=== PATIENT | female | born 1985 | race Hispanic/Latino ===

== ENCOUNTER → 2021-02-06 | Outpatient (CLI) | payer OTHER ==
[2021-02-06 10:35] LABS: BASOPHILS % (AUTO) 0.4 % (0.0-5.0); EOSINOPHILS % (AUTO) 2.6 % (0.0-8.0); HEMATOCRIT 46.2 % (36-48); LYMPHOCYTES % (AUTO) 26.5 % (21.0-51.0); MEAN CORPUSCULAR HEMOGLOBIN 28.7 pg (27.0-33.0); MEAN CORPUSCULAR HGB CONC 30.7 g/dL (32.0-36.0); MEAN CORPUSCULAR VOLUME 93.5 fL (79-99); MONOCYTES % (AUTO) 7.9 % (3.0-13.0); NEUTROPHILS % (AUTO) 61.9 % (40.0-77.0); PLATELET COUNT (AUTO) 401 K/uL (130-400); RED BLOOD CELL COUNT(AUTO) 4.94 MIL/uL (4.00-5.50); RED CELL DISTRIBUTION WIDTH 14.1 % (11.0-15.5); WHITE BLOOD COUNT (AUTO) 9.7 K/uL (4.8-10.8)
[2021-02-06 10:55] LABS: HEMOGLOBIN A1C 5.9 % (4.0-6.0)
[2021-02-06 11:15] LABS: CREATININE 0.8 mg/dL (0.5-1.5); POTASSIUM 4.8 mmol/L (3.5-5.1)
== END | disposition home or self-care (01) ==
LOC: LAB 08:03
PROVIDERS: ATTEND Nurse Practitioner Adult Health
DX: Z00.00 Encounter for general adult medical examination without abnormal findings (principal)
CPT/HCPCS: 36415; 80048; 83036; 85025

== ENCOUNTER → 2021-10-08 | Outpatient (CLI) | payer OTHER ==
[2021-10-08 09:25] LABS: BASOPHILS % (AUTO) 0.4 % (0.0-5.0); EOSINOPHILS % (AUTO) 1.7 % (0.0-8.0); HEMATOCRIT 45.9 % (36-48); LYMPHOCYTES % (AUTO) 27.8 % (21.0-51.0); MEAN CORPUSCULAR HEMOGLOBIN 29.3 pg (27.0-33.0); MEAN CORPUSCULAR HGB CONC 31.4 g/dL (32.0-36.0); MEAN CORPUSCULAR VOLUME 93.5 fL (79-99); MONOCYTES % (AUTO) 6.6 % (3.0-13.0); NEUTROPHILS % (AUTO) 63.1 % (40.0-77.0); PLATELET COUNT (AUTO) 181 K/uL (130-400); RED BLOOD CELL COUNT(AUTO) 4.91 MIL/uL (4.00-5.50); RED CELL DISTRIBUTION WIDTH 13.5 % (11.0-15.5); WHITE BLOOD COUNT (AUTO) 11.1 K/uL (4.8-10.8)
[2021-10-08 09:56] LABS: ALBUMIN 4.1 g/dL (3.5-5.0); BILIRUBIN,TOTAL 0.3 mg/dL (0.2-1.0); CREATININE 0.7 mg/dL (0.5-1.5); POTASSIUM 4.2 mmol/L (3.5-5.1); THYROID STIMULATING HORMONE 1.37 uIU/mL (0.36-3.74); TOTAL PROTEIN, SERUM 7.8 g/dL (6.0-8.3)
[2021-10-08 10:20] LABS: HEMOGLOBIN A1C 5.9 % (4.0-6.0)
== END | disposition home or self-care (01) ==
LOC: RAH 08:44
PROVIDERS: ATTEND Nurse Practitioner Adult Health
DX: Z00.00 Encounter for general adult medical examination without abnormal findings (principal); R06.02 Shortness of breath
CPT/HCPCS: 36415; 71046; 80053; 80061; 82306; 83036; 84443; 85025

== ENCOUNTER 2024-06-23 21:55 | Emergency (ER) | payer OTHER ==
[~2024-06-23] VITALS: Ht 154.9 cm; Wt 68.9 kg
[2024-06-24 01:54] LABS: ADD UA MICROSCOPIC YES; APPEARANCE,URINE CLEAR (CLEAR); BILIRUBIN,URINE NEGATIVE (NEGATIVE); COLOR,URINE YELLOW (YELLOW); GLUCOSE, URINE (UA) NEGATIVE (NEGATIVE); KETONES,URINE NEGATIVE (NEGATIVE); LEUKOCYTE ESTERASE ,URINE NEGATIVE Leu/uL (NEGATIVE); NITRATE,URINE NEGATIVE (NEGATIVE); OCCULT BLOOD,URINE NEGATIVE (NEGATIVE); PH,URINE 5.5 (5.0-8.0); PROTEIN,URINE 10 mg/dL (NEGATIVE); UROBILINOGEN,URINE 0.2 mg/dL (0.2-1.0)
[2024-06-24 01:56] LABS: HCG,QUALITATIVE URINE NEGATIVE (NEGATIVE)
[2024-06-24 01:58] LABS: BACTERIA,URINE FEW /HPF (None Seen); CALCIUM OXALATE CRYSTALS,UR MANY /LPF (None Seen); SQUAMOUS EPITHELIAL CELL,UR RARE /HPF (0-2)
[2024-06-24] MEDS ORDERED: KETO10TA2 PO (02:24)
[2024-06-24] MEDS: KETOROLAC 30MG VIAL (30MG/ML) IVP ONE (02:31)
[2024-06-24] MEDS: ORPHENADRINE 60MG/2ML IVP ONE (02:31)
[2024-06-24] MEDS: TRIAMCINOLONE ACETONIDE 40 MG/ML 1ML VIAL IM ONE (02:32)
[2024-06-24 02:34] VITALS: BP 130/86; PULSE 77; RESP 20; O2SAT 100
== END 2024-06-24 02:40 | disposition home or self-care (01) ==
LOC: EDH 21:55
DX: G89.29 Other chronic pain (principal); M54.89 Other dorsalgia; Z88.2 Allergy status to sulfonamides; Z88.5 Allergy status to narcotic agent; Z88.8 Allergy status to other drugs, medicaments and biological substances; Z98.890 Other specified postprocedural states
CPT/HCPCS: 99284; 81001; 81025; 96374; 96375; 96372; J3301; J1885; J2360

== ENCOUNTER → 2024-06-28 | Outpatient (CLI) | payer OTHER ==
[~2024-06-28] MED LIST: KETO10TA2 PO
[2024-06-28 14:31] LABS: CREATININE 0.5 mg/dL (0.5-1.0); MAGNESIUM 2.3 mg/dL (1.80-2.40); POTASSIUM 4.1 mmol/L (3.5-5.1)
== END | disposition home or self-care (01) ==
LOC: LAB 13:33
PROVIDERS: ATTEND Internal Medicine
DX: R55 Syncope and collapse (principal)
CPT/HCPCS: 36415; 80048; 83735

== ENCOUNTER 2024-09-30 16:29 | Emergency (ER) | payer OTHER ==
[~2024-09-30] VITALS: Ht 154.9 cm; Wt 71.2 kg
[2024-09-30 16:49] VITALS: TEMP 98.6
--- NOTE | 2024-09-30 17:51 | ERN ---
ED Note History of Present Illness Stated Complaint: BACK PAIN Chief Complaint: Back Pain or Injury Time Seen by MD: 17:08 Time Seen by Midlevel: 17:08 Dictation: The patient is a 39-year-old female with a history of , cholecystectomy, gastric sleeve, L5 spondylosis who presents to the emergency department with complaints of low back pain radiating down her right lower leg. 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 Patient reports that she has gotten multiple x-rays and MRI and they still do she had a grade 3 spondylosis of L 5 and S1 but has not been able to follow up with a specialist due to insurance issues. Patient denies any fecal or urinary incontinence, denies any lower extremity tingling or numbness. Allergies: Coded Allergies: Codeine (Unverified Allergy, HIVES, 03/04/13) Meperidine HCl (Unverified Allergy, CONFUSION, 03/04/13) Sulfa(Sulfonamide Antibiotics) (Unverified Allergy, HIVES, 03/04/13) ondansetron HCl (Unverified Allergy, CONFUSION, 03/04/13) Home Meds Active Scripts Ketorolac Tromethamine (Ketorolac Tromethamine) 10 Mg Tablet, 10 MG PO BID for 5 Days, #10 TAB Prov:GEOVANNY KEYS 06/24/24 Past Medical History Past Medical History: No Pertinent History Surgical History: History: Not Applicable (reports control implant, denies ) RN Note Reviewed/Agreed w/PFSH: Yes Review of System Dictation Constitutional: Negative for fever,chills, and weight loss Eyes: Negative for injury, pain,redness, and discharge ENT: Negative for injury,pain or swelling Cardiovascular: Negative for chest pain, palpitations, and edema Respiratory: Negative for shortness of breath, cough, and wheezing, Abdomen/GI: Negative for abdominal pain, nausea, vomiting, diarrhea, and constipation Back: Negative for injury and pain : Negative for injury, bleeding and discharge MS/Extremity: Negative for injury and deformity positive for low back pain Skin: Negative for rash, and discoloration Neuro: Negative for headache, weakness, numbness, tingling, and seizure Psych: Negative for suicide ideation, homicidal ideation, and hallucinations Initial Vital Sign VS Vital Signs Date Time Temp Pulse Resp B/P (MAP) Pulse Ox O2 Delivery O2 Flow Rate FiO2 09/30/24 16:49 98.6 78 18 159/99 98 09/30/24 17:33 Room Air* 0 21 Physical Exam Dictation Vital Signs reviewed General Appearance: Alert, oriented x 3, no acute distress, well developed, nourished. Head and Face: non-traumatic. Eyes: PERRL, pink conjunctivas, eyelid no trauma, anterior chamber with arcus senilis. Ears: Pinnas intact and no signs of trauma or erythema ear canals clear and no discharge TM no erythema Nose: No discharge, no bleeding. Oropharynx: Mouth normal, tongue pink. pharynx clear,no erythema, tonsils no exudates, no abscesses noted, mucous membrane moist Neck: Supple, non-tender, no thyromegaly, no masses, no JVD, no bruits Breast:Deferred Chest:No tenderness, no crepitus, no paradoxical movement, no retractions Lungs:Clear, well-ventilated, symmetric, no rales, no wheezing, no rhonchi, no stridor, good breath sounds bilaterally Heart: Regular rate, regular rhythm, no murmur, no gallops Vascular: no peripheral edema, cap refill less than 2 seconds, dorsalis pedis 3+ Abdomen: Soft, positive bowel sounds, nondistended, no guarding, nontender, no rebound, no masses no hepatomegaly, no splenomegaly, no Liu's sign, no hernias. Rectal: Deferred Genital: Deferred Neurological: Normal speech, motor function intact, sensory function intact Musculoskeletal: Neck nontender, full range of motion, back nontender, tenderness to right buttocks full range of motion, Extremities: nontender, full range of motion Skin: Color pink, dry, no turgor, no rash, no lacerations, no abrasions, no contusions. Lymphatic: Deferred Results (Laboratory/Radiology) Labs Reviewed?: Yes ED Course ED Course Orders Procedure Category Date Status Time Orphenadrine Citrate PHA 09/30/24 Complete (Norflex) 17:30 Triamcinolone Acet PHA 09/30/24 Complete 40mg/Ml 1ml (Kenalog 17:30 Current Medications Medications (Trade) Dose Ordered Sig/Mariaa Route PRN Reason Start Time Stop Time Status Last Admin Dose Admin Orphenadrine Citrate (Norflex) 60 mg ONCE ONCE IM 09/30/24 17:30 09/30/24 17:31 DC 09/30/24 19:17 Triamcinolone Acetonide (Kenalog 40) 40 mg ONCE ONCE IM 09/30/24 17:30 09/30/24 17:31 DC 09/30/24 19:17 Vital Signs Date Time Temp Pulse Resp B/P (MAP) Pulse Ox O2 Delivery O2 Flow Rate FiO2 09/30/24 17:33 75 18 146/79 99 Room Air* 0 09/30/24 16:49 98.6 78 18 159/99 98 Medical Decision Making MDM The patient is a 39-year-old female with a history of , cholecystectomy, gastric sleeve, L5 spondylosis who presents to the emergency department with complaints of low back pain radiating down her right lower leg. 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 Patient reports that she has gotten multiple x-rays and MRI and they still do she had a grade 3 spondylosis of L 5 and S1 but has not been able to follow up with a specialist due to insurance issues. Patient denies any fecal or urinary incontinence, denies any lower extremity tingling or numbness. Patient treated for pain in ED. Continues in no distress. Will be discharged to follow up with PCP. Patient agrees with discharge planning. Differential diagnosis: Chronic low back pain, sciatic nerve pain, piriformis syndrome Need for hospitalization: Patient does not meet criteria for hospitalization. There are no social concerns with this patient. DX & DISP Disposition: Discharge Departure Impression: Primary Impression: Chronic back pain Condition: Stable Scripts Lidocaine (Lidocaine Pain Relief) 4 % Adh..patch 1 PATCH TP DAILY for 10 Days, #10 PATCH 0 Refills Prov: NAY CAMPOS [employer] 09/30/24 Cyclobenzaprine HCl (Flexeril) 10 Mg Tab 10 MG PO TID for muscle sstiffness, #14 TAB 0 Refills Prov: NAY CAMPOS [employer] 09/30/24 Additional Instructions: FOLLOW-UP WITH PRIMARY CARE PROVIDER IN 1 TO 2 DAYS. TAKE MEDICATIONS DIRECTED HERE IN THE EMERGENCY ROOM. OKAY TO CONTINUE HOME MEDICATIONS UNLESS OTHERWISE DISCUSSED DURING YOUR VISIT IN THE EMERGENCY ROOM TODAY. RETURN TO YOUR NEAREST EMERGENCY ROOM IF SYMPTOMS WORSEN OR IF THERE IS NO IMPROVEMENT. CALL 911 IF YOU NEED IMMEDIATE ASSISTANCE. TAKE TYLENOL OR MOTRIN [id number] NEEDED AND IF NO CONTRAINDICATIONS ARE PRESENT. INCREASE ORAL HYDRATION. A WOUND CULTURE OR URINE CULTURE WAS ORDERED HERE IN THE EMERGENCY ROOM DEPARTMENT PLEASE FOLLOW-UP WITH PRIMARY CARE PROVIDER AND ADVISE THEM TO GET REPEAT PORTS FROM OUR FACILITY. IF YOU HAD ANY MERCEDEZ WRAP/SPLINTS THAT WERE APPLIED HERE, PLEASE DO NOT REMOVE THEM UNTIL YOU SEE YOUR PRIMARY CARE OR SPECIALTY. Referrals: AGAPITO BRUCE [employer] (PCP) Time of Disposition: 19:53 I have reviewed the case, and I agree with, Diagnosis and Plan NAY CAMPOS [facility] Sep 30, 2024 17:51
[2024-09-30] MEDS: ORPHENADRINE 60MG/2ML IM ONE (19:17)
[2024-09-30] MEDS: TRIAMCINOLONE ACETONIDE 40 MG/ML 1ML VIAL IM ONE (19:17)
[2024-09-30] MEDS ORDERED: LIDO1ADH71 TP (19:54)
[2024-09-30] MEDS ORDERED: CYCL10TA16 PO (19:54)
[2024-09-30 20:16] VITALS: BP 134/75; PULSE 76; RESP 18; O2SAT 99
[2024-09-30] MEDS: ibuPROFEN 600 MG TABLET PO ONE (20:16)
== END 2024-09-30 20:17 | disposition home or self-care (01) ==
LOC: EDH 16:29
DX: G89.29 Other chronic pain (principal); M54.50 Low back pain, unspecified; Z88.2 Allergy status to sulfonamides; Z88.5 Allergy status to narcotic agent; Z79.899 Other long term (current) drug therapy; Z98.890 Other specified postprocedural states
CPT/HCPCS: 99284; 96372 ×2; J3301; J2360

== ENCOUNTER → 2024-10-06 | Outpatient (CLI) | payer OTHER ==
[~2024-10-06] MED LIST changes: +CYCL10TA16 PO; +LIDO1ADH71 TP
[2024-10-06 08:35] LABS: BASOPHILS # (AUTO) 0.04 K/uL (0.00-0.20); BASOPHILS % (AUTO) 0.6 % (0.0-5.0); EOSINOPHILS # (AUTO) 0.15 K/uL (0.00-0.70); EOSINOPHILS % (AUTO) 2.2 % (0.0-8.0); HEMATOCRIT 36.5 % (36-48); IMMATURE GRANULOCYTE ABSOLUTE 0.01 K/uL (0-1); LYMPHOCYTES # (AUTO) 2.2 K/uL (1.0-4.8); LYMPHOCYTES % (AUTO) 32.7 % (21.0-51.0); MEAN CORPUSCULAR HEMOGLOBIN 28.8 pg (27.0-33.0); MEAN CORPUSCULAR HGB CONC 31.5 g/dL (32.0-36.0); MEAN CORPUSCULAR VOLUME 91.5 fL (79-99); MONOCYTES # (AUTO) 0.5 K/uL (0.1-1.0); MONOCYTES % (AUTO) 7.7 % (3.0-13.0); NEUTROPHILS # (AUTO) 3.8 K/uL (1.8-7.7); NEUTROPHILS % (AUTO) 56.7 % (40.0-77.0); PLATELET COUNT (AUTO) 324 K/uL (130-400); RED BLOOD CELL COUNT(AUTO) 3.99 MIL/uL (4.00-5.50); RED CELL DISTRIBUTION WIDTH 13.8 % (11.0-15.5); WHITE BLOOD COUNT (AUTO) 6.8 K/uL (4.8-10.8)
[2024-10-06 09:00] LABS: BILIRUBIN,TOTAL 0.4 mg/dL (0.2-1.0); CREATININE 0.7 mg/dL (0.5-1.0); POTASSIUM 4.5 mmol/L (3.5-5.1); TOTAL PROTEIN, SERUM 6.8 g/dL (6.0-8.3)
== END | disposition home or self-care (01) ==
LOC: LAB 07:09
PROVIDERS: ATTEND Internal Medicine
DX: K76.0 Fatty (change of) liver, not elsewhere classified (principal); E78.6 Lipoprotein deficiency
CPT/HCPCS: 36415; 80053; 82728; 85025

== ENCOUNTER 2024-12-09 18:03 | Emergency (ER) | payer OTHER ==
[~2024-12-09] VITALS: Ht 154.9 cm; Wt 73.5 kg
[2024-12-09 19:11] LABS: HEMATOCRIT 37.7 % (36-48); MEAN CORPUSCULAR HEMOGLOBIN 29.1 pg (27.0-33.0); MEAN CORPUSCULAR HGB CONC 31.8 g/dL (32.0-36.0); MEAN CORPUSCULAR VOLUME 91.5 fL (79-99); RED BLOOD CELL COUNT(AUTO) 4.12 MIL/uL (4.00-5.50); RED CELL DISTRIBUTION WIDTH 13.7 % (11.0-15.5); WHITE BLOOD COUNT (AUTO) 10.2 K/uL (4.8-10.8)
[2024-12-09 19:13] LABS: APPEARANCE,URINE CLOUDY (CLEAR); BILIRUBIN,URINE NEGATIVE (NEGATIVE); COLOR,URINE LIGHT-YELLOW (YELLOW); GLUCOSE, URINE (UA) NEGATIVE (NEGATIVE); KETONES,URINE NEGATIVE (NEGATIVE); LEUKOCYTE ESTERASE ,URINE 500 Leu/uL (NEGATIVE); NITRATE,URINE NEGATIVE (NEGATIVE); OCCULT BLOOD,URINE LARGE (NEGATIVE); PROTEIN,URINE 70 mg/dL (NEGATIVE); UROBILINOGEN,URINE 0.2 mg/dL (0.2-1.0)
[2024-12-09 19:14] LABS: ADD UA MICROSCOPIC YES
[2024-12-09 19:17] LABS: BACTERIA,URINE FEW /HPF (None Seen); RBC,URINE 51-100 /HPF (0-1); UNCLASSIFIED CRYSTAL 1 /HPF (None Seen); WBC CLUMP FEW /HPF (0-1); WBC,URINE 26-50 /HPF (0-1); YEAST,URINE BUDDING RARE /HPF (None Seen)
[2024-12-09 19:23] LABS: CREATININE 0.6 mg/dL (0.5-1.0); POTASSIUM 4.1 mmol/L (3.5-5.1)
[2024-12-09 19:29] LABS: ALBUMIN 3.8 g/dL (3.5-5.0); BILIRUBIN,DIRECT 0.1 mg/dL (0.0-0.3); BILIRUBIN,TOTAL 0.3 mg/dL (0.2-1.0); TOTAL PROTEIN, SERUM 7.2 g/dL (6.0-8.3)
--- NOTE | 2024-12-09 21:09 | HMCIMG ---
Exam Type: CT ABDOMEN/PELVIS W/O CONTRAST Clinical Information: r/o kidney stones vs pyelonephritis Comparison: None CT Dose Index (CTDI): 10.20 mGy Dose Length Product (DLP): 530.00 total mGy-cm PROTOCOL: Routine noncontrast helical scanning of the abdomen and pelvis was performed at 5mm collimation. Findings: No evidence of nephro or ureterolithiasis is found. No hydronephrosis or ureteral dilatation is seen. The lung bases are clear. The stomach is unremarkable. It shows no wall thickening. No gross ulceration is seen. It is not overly distended. There are no surrounding inflammatory changes. No wall lesions are identified to suggest cancer. The spleen is unremarkable. It is not enlarged. The pancreas shows normal anatomy. It is not fatty replaced. It shows no lesions. The pancreatic duct is not dilated. The gallbladder is unremarkable. It shows no cholelithiasis. The gallbladder wall is normal in thickness. There is no pericholecystic fluid. The is no acute or chronic inflammation noted. The adrenal glands are unremarkable. There is no enlargement. No lesions are noted. The liver is unremarkable. It shows no focal masses. The appendix is unremarkable. It shows no evidence of inflammation. No appendicolith is seen. The small bowel is unremarkable. There is no evidence of dilatation to suggest obstruction. No evidence of adynamic ileus is seen. There is no small bowel wall thickening to suggest enteritis. The colon is unremarkable. The urinary bladder is unremarkable. There is no wall thickening to suggest tumor or inflammation. There are no intraluminal calculi. There are no diverticula. There is no evidence of chronic bladder outlet obstruction. There is no evidence of urinary bladder distention to suggest urinary retention. The other pelvic structures are unremarkable. 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 IMPRESSION: NEGATIVE CT SCAN OF THE ABDOMEN AND PELVIS. NO RENAL STONES. NO ACUTE PATHOLOGY OR INFLAMMATION SEEN. This study was performed using dose reduction techniques to include automated exposure control and/or adjustment of the mA and/or kV according to patient size.
[2024-12-09] MEDS ORDERED: PHEN-776 PO (21:36)
[2024-12-09] MEDS ORDERED: MACR100 PO (21:36)
--- NOTE | 2024-12-09 21:48 | ERN ---
General Chief Complaint: Flank Pain Stated Complaint: FLANK PAIN,ABDOMINAL PAIN Time Seen by MD: 18:11 Time Seen by Midlevel: 18:11 Source: patient History of Present Illness Initial Comments Patient is a 39-year-old female with no significant past medical history presenting to the emergency department with bilateral flank pain and lower abdominal pain that started earlier today. This denies any nausea, vomiting, fever, chills, or any other symptoms at this time. The pain is rated 10/10 on a 0-10 scale. Past surgical history includes appendectomy, cholecystectomy, and C-sections Allergies: Coded Allergies: Codeine (Unverified Allergy, HIVES, 03/04/13) Meperidine HCl (Unverified Allergy, CONFUSION, 03/04/13) Sulfa(Sulfonamide Antibiotics) (Unverified Allergy, HIVES, 03/04/13) ondansetron HCl (Unverified Allergy, CONFUSION, 03/04/13) Home Meds Active Scripts Lidocaine (Lidocaine Pain Relief) 4 % Adh..patch, 1 PATCH TP DAILY for 10 Days, #10 PATCH 0 Refills Prov:NAY CAMPOS [facility] 09/30/24 Cyclobenzaprine HCl (Flexeril) 10 Mg Tab, 10 MG PO TID for muscle sstiffness, #14 TAB 0 Refills Prov:NAY CAMPOS [facility] 09/30/24 Ketorolac Tromethamine (Ketorolac Tromethamine) 10 Mg Tablet, 10 MG PO BID for 5 Days, #10 TAB Prov:GEOVANNY KEYS 06/24/24 Past Medical History Past Medical History: No Pertinent History Past Surgical History: Appendectomy, Cholecystectomy, Female( History) History: Not Applicable ROS Dictation CONSTITUTIONAL: Negative except for HPI HEAD/FACE: Negative except for HPI EENT: Negative except for HPI RESPIRATORY: Negative except for HPI GASTROINTESTINAL/ABDOMINAL: Negative except for HPI GENITOURINARY: Negative except for HPI MUSCULOSKELETAL: Negative except for HPI INTEGUMENTARY: Negative except for HPI NEUROLOGICAL/PSYCH: Negative except for HPI HEMATOLOGIC/LYMPHATIC: Negative except for HPI All Systems Negative, Except as noted above. 13 point review of systems assessed and all negative except for above. Physical Exam Physical Exam Dictation Vital Signs reviewed General Appearance: Alert, oriented x 3, no acute distress, well developed, nourished. Head and Face: non-traumatic. Eyes: PERRL, pink conjunctivas, eyelid no trauma, anterior chamber with arcus senilis. Ears: Pinnas intact and no signs of trauma or erythema ear canals clear and no discharge TM no erythema Nose: No discharge, no bleeding. Oropharynx: Mouth normal, tongue pink, pharynx clear,no erythema, tonsils no exudates, no abscesses noted, mucous membrane moist Neck: Supple, non-tender, no thyromegaly, no masses, no JVD, no bruits Breast:Deferred Chest:No tenderness, no crepitus, no paradoxical movement, no retractions Lungs:Clear, well-ventilated, symmetric, no rales, no wheezing, no rhonchi, no stridor, good breath sounds bilaterally Heart: Regular rate, regular rhythm, no murmur, no gallops Vascular: no peripheral edema, Abdomen: Soft, positive bowel sounds, nondistended, no guarding, Bilateral CVA tenderness, suprapubic abdominal tenderness, no rebound, no masses no hepatomegaly, no splenomegaly, no Liu's sign, no hernias. Rectal: Deferred Genital: Deferred Neurological: Normal speech, motor function intact, sensory function intact Musculoskeletal: Neck nontender, full range of motion, back nontender, full range of motion, Extremities: nontender, full range of motion Skin: Color pink, dry, no turgor, no rash, no lacerations, no abrasions, no contusions. Lymphatic: Deferred Results Laboratory and Microbiology Lab and Micro Result Laboratory Tests Test 12/09/24 18:15 12/09/24 18:50 Urine Color LIGHT-YELLOW (YELLOW) Urine Appearance CLOUDY (CLEAR) H Urine pH 6.0 (5.0-8.0) Urine Specific [place] 1.014 (1.001-1.031) Urine Protein 70 mg/dL (NEGATIVE) H Urine Glucose (UA) NEGATIVE mg/dL (NEGATIVE) Urine Ketones NEGATIVE mg/dL (NEGATIVE) Urine Occult Blood LARGE (NEGATIVE) H Urine Nitrate NEGATIVE (NEGATIVE) Urine Bilirubin NEGATIVE mg/dL (NEGATIVE) Urine Urobilinogen 0.2 mg/dL (0.2-1.0) Urine Leukocyte Esterase 500 Ha/uL (NEGATIVE) H Urine RBC 51-100 /HPF (0-1) H Urine WBC 26-50 /HPF (0-1) H Urine WBC Clumps (Auto) FEW /HPF (0-1) Urine Other Crystals (Auto) 1 /HPF (None Seen) Urine Bacteria FEW /HPF (None Seen) Urine Yeast RARE /HPF (None Seen) White Blood Count 10.2 K/uL (4.8-10.8) Red Blood Count 4.12 MIL/uL (4.00-5.50) Hemoglobin 12.0 g/dL (12.0-16.0) Hematocrit 37.7 % (36-48) Mean Corpuscular Volume 91.5 fL (79-99) Mean Corpuscular Hemoglobin 29.1 pg (27.0-33.0) Mean Corpuscular Hemoglobin Concent 31.8 g/dL (32.0-36.0) L Red Cell Distribution Width 13.7 % (11.0-15.5) Platelet Count 289 K/uL (130-400) Mean Platelet Volume 9.2 fL (7.5-10.5) Nucleated Red Blood Cells 0.0 % (0.0-0.19) Sodium Level 139 mmol/L (136-145) Potassium Level 4.1 mmol/L (3.5-5.1) Chloride Level 103 mmol/L (101-111) Carbon Dioxide Level 30 mmol/L (21-32) Blood Urea Nitrogen 10 mg/dL (7-18) Creatinine 0.6 mg/dL (0.5-1.0) Glomerular Filtration Rate Calc 118 mL/min (>90) Random Glucose 110 mg/dL (70-105) H Total Calcium 8.8 mg/dL (8.5-10.1) Total Bilirubin 0.3 mg/dL (0.2-1.0) Direct Bilirubin 0.1 mg/dL (0.0-0.3) Aspartate Amino Transf (AST/SGOT) 18 U/L (10-37) Alanine Aminotransferase (ALT/SGPT) 37 U/L (12-78) Alkaline Phosphatase 75 U/L (50-136) Total Protein 7.2 g/dL (6.0-8.3) Albumin 3.8 g/dL (3.5-5.0) Lipase 29 U/L (16-77) Serum Test, Qualitative NEGATIVE (NEGATIVE) Labs Reviewed?: Yes MDM MDM: Differential diagnosis: Urinary tract infection, pyelonephritis, ureter stone There are no social concerns with this patient. Prescription drug management Prescriptions will include: Macrobid Medical management and examination interpretation discussions were had by me with other qualified healthcare professionals as indicated for the patient's care. ED Course Orders Procedure Category Date Status Time Cbc Without LAB 12/09/24 Complete Differential 18:10 Urinalysis Profile LAB 12/09/24 Complete 18:10 Basic Metabolic Panel LAB 12/09/24 Complete 18:12 Hepatic Function Panel LAB 12/09/24 Complete 18:12 Lipase LAB 12/09/24 Complete 18:12 Testing, LAB 12/09/24 Complete Serum Hcg 18:12 Culture Urine MARLENE 12/09/24 In Process 19:15 Ct Abdomen/Pelvis W/O CT 12/09/24 Resulted Contrast 20:48 0.9%Nacl 1000ml (Ns PHA 12/09/24 Complete 1000ml) 21:00 Ketorolac PHA 12/09/24 Complete Tromethamine 15mg/Ml 21:00 Ceftriaxone 1g Vial PHA 12/09/24 Complete (Rocephine 1g Inj) 21:00 Phenazopyridine Hcl PHA 12/09/24 Complete 200 Mg Tab (Pyridium 21:30 Current Medications Medications (Trade) Dose Ordered Sig/Mariaa Route PRN Reason Start Time Stop Time Status Last Admin Dose Admin Ceftriaxone Sodium (ROCEphine 1G INJ) 1 gm ONCE ONCE IVPB 12/09/24 21:00 12/09/24 21:01 DC Ketorolac Tromethamine (toRADol) 15 mg ONCE ONCE IV 12/09/24 21:00 12/09/24 21:01 DC Phenazopyridine HCl (PYRIdium HCL 200 MG TAB) 200 mg ONCE ONCE PO 12/09/24 21:30 12/09/24 21:31 DC Sodium Chloride 1,000 ml @ 0 mls/hr ONCE ONCE IV 12/09/24 21:00 12/09/24 21:01 DC Vital Signs Date Time Temp Pulse Resp B/P (MAP) Pulse Ox O2 Delivery O2 Flow Rate FiO2 12/09/24 18:07 97.9 78 16 131/90 100 Room Air [place] [id number] [id number] IMAGING REPORT Signed PATIENT: SAÚL SALAZAR MR#: [id number] : 1985 SEX: F AGE: 39 LOCATION: [facility] ORDER 48 STATUS: [facility] REPORT#: [id number] SERVICE 47 REASON: r/o kidney stones vs pyelonephritis ORDERING PHYSICIAN: GEOVNANY KEYS PROCEDURE: ABD PEL WO - CT ABDOMEN/PELVIS W/O CONTRAST Exam Type: CT ABDOMEN/PELVIS W/O CONTRAST Clinical Information: r/o kidney stones vs pyelonephritis Comparison: None CT Dose Index (CTDI): 10.20 mGy Dose Length Product (DLP): 530.00 total mGy-cm PROTOCOL: Routine noncontrast helical scanning of the abdomen and pelvis was performed at 5mm collimation. Findings: No evidence of nephro or ureterolithiasis is found. No hydronephrosis or ureteral dilatation is seen. The lung bases are clear. The stomach is unremarkable. It shows no wall thickening. No gross ulceration is seen. It is not overly distended. There are no surrounding inflammatory changes. No wall lesions are identified to suggest cancer. The spleen is unremarkable. It is not enlarged. The pancreas shows normal anatomy. It is not fatty replaced. It shows no lesions. The pancreatic duct is not dilated. The gallbladder is unremarkable. It shows no cholelithiasis. The gallbladder wall is normal in thickness. There is no pericholecystic fluid. The is no acute or chronic inflammation noted. The adrenal glands are unremarkable. There is no enlargement. No lesions are noted. The liver is unremarkable. It shows no focal masses. The appendix is unremarkable. It shows no evidence of inflammation. No appendicolith is seen. The small bowel is unremarkable. There is no evidence of dilatation to suggest obstruction. No evidence of adynamic ileus is seen. There is no small bowel wall thickening to suggest enteritis. The colon is unremarkable. The urinary bladder is unremarkable. There is no wall thickening to suggest tumor or inflammation. There are no intraluminal calculi. There are no diverticula. There is no evidence of chronic bladder outlet obstruction. There is no evidence of urinary bladder distention to suggest urinary retention. The other pelvic structures are unremarkable. 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 IMPRESSION: NEGATIVE CT SCAN OF THE ABDOMEN AND PELVIS. NO RENAL STONES. NO ACUTE PATHOLOGY OR INFLAMMATION SEEN. This study was performed using dose reduction techniques to include automated exposure control and/or adjustment of the mA and/or kV according to patient size. DICTATED BY: LEONIE NOBLE MD DATE: 12/09/242104 ELECTRONICALLY SIGNED BY: LEONIE NOBLE MD DATE: 12/09/242108 DX & DISP Disposition: Discharge Departure Impression: Primary Impression: Urinary tract infection Condition: Stable Scripts Phenazopyridine HCl (Pyridium) 200 Mg Tablet 200 MG PO BID for painful urination for 5 Days, #10 TAB 0 Refills Prov: GEOVANNY KEYS 12/09/24 Nitrofurantoin/Nitrofuran Mac (Macrobid) 100 Mg Cap 1 CAP PO BID for 7 Days, #14 CAP 0 Refills Prov: GEOVANNY KEYS 12/09/24 Additional Instructions: Your blood work today is stable. Your urinalysis is consistent with infection. Your CT scan of the abdomen/pelvis does not reveal any evidence of a kidney stone or kidney infection. You were given IV pain medication and IV antibiotics in the emergency department. I have given you a prescription for oral antibiotics for outpatient management. Please follow up with your primary care doctor in 2-3 days for repeat evaluation. If you develop any new or worsening symptoms please report to ER for further evaluation. Referrals: AGAPITO BRUCE CAN REPAIRER (PCP) I have reviewed the case, and I agree with, Diagnosis and Plan I performed the substantive portion of the visit. I have reviewed and personally made and approve the management plan that is documented in the note by myself or the LINDSEY. I acknowledge for responsibility for the patient's management plan. GEOVANNY KEYS Dec 09, 2024 21:48
[2024-12-09] MEDS: PHENAZOpyridine HCL 200 MG TAB 200 MG TABLET PO ONE (22:08)
[2024-12-09] MEDS: ketOROlac 15MG/ML VIAL (15MG/ML) IV ONE (22:08)
[2024-12-09] MEDS: 0.9%NACL 1000ML 1,000 ML IV ONE (22:08)
[2024-12-09] MEDS: cefTRIAXone 1G VIAL IVPB ONE (22:08)
[2024-12-09 22:14] VITALS: BP 130/90; PULSE 75; RESP 16; TEMP 98.1; O2SAT 98
--- NOTE | 2024-12-09 22:18 | NUR ---
dc pend med completion
== END 2024-12-09 22:46 | disposition home or self-care (01) ==
LOC: EEVIPCON 18:03 → EDH 18:03
DX: N39.0 Urinary tract infection, site not specified (principal); Z88.2 Allergy status to sulfonamides; Z88.5 Allergy status to narcotic agent; Z90.49 Acquired absence of other specified parts of digestive tract
CPT/HCPCS: 99285; 74176; 96374; 96375; 80076; 80048; 84703; 83690; 85027; 87086 ×2; 87186; 81001; 36415; J1885; J7030; J0696